=== PATIENT | female | born 1945 | race Caucasian/White ===

== ENCOUNTER 2020-05-02 16:39 | Inpatient (IN) | payer MEDICARE, OTHER ==
[~2020-05-02] VITALS: Ht 172.7 cm; Wt 68.0 kg
--- NOTE | 2020-05-02 17:00 | NUR ---
GPS/RN RECEIVED PT DIRECT ADMISSION FROM [facility] ON 5149 FOR DTS. ADMITTING ORDERS FROM DR LUA RECEIVED AND CARRIED OUT. BELONGINGS CHECKED FOR CONTRABAND. PT IS AMBULATORY CONTINENT NO ACUTE DISTRESS NOTED. NO SUICIDAL PLAN OR HI AT THE TIME OF ADMISSION. FAMILY (DAUGHTER [phone]) NOTIFIED OF ADMISSION. BS CHECK 187. PT NOT TAKING INSULIN AT HOME AND NOT COMPLIANT WITH MEDS AT HOME PER DAUGHTER.
[2020-05-02] MEDS ORDERED: LORA-258 PO (17:21)
[2020-05-02] MEDS ORDERED: RAMI10CA69 PO (17:21)
[2020-05-02] MEDS ORDERED: SITA1TAB6 PO (17:21)
[2020-05-02] MEDS ORDERED: DULO30CA52 PO (17:21)
[2020-05-02] MEDS ORDERED: EZET10TA32 PO (17:21)
[2020-05-02] MEDS ORDERED: ATEN25TA PO (17:21)
[2020-05-02] MEDS ORDERED: NITR0.4T48 SL (17:21)
[2020-05-02] MEDS ORDERED: SIMV-49 PO (17:21)
[2020-05-02] MEDS ORDERED: CLOP75TA15 PO (17:21)
[2020-05-02] MEDS ORDERED: ASPI-1169 PO (17:21)
[2020-05-02] MEDS ORDERED: ESOM40CA52 PO (17:21)
[2020-05-02] MEDS ORDERED: LORAZEPAM 0.5 MG TABLET PO PRN (17:30)
[2020-05-02] MEDS ORDERED: ACETAMINOPHEN 325 MG TABLET PO PRN (17:30)
[2020-05-02] MEDS ORDERED: MAGNESIUM HYDROXIDE 30 ML UDC PO PRN (17:30)
[2020-05-02] MEDS ORDERED: BLOOD SUGAR DIAGNOSTIC 1 EACH STRIP IN ONE (17:30)
[2020-05-02 17:47] VITALS: BP 123/68
--- NOTE | 2020-05-02 19:08 | NUR ---
GPS/RN ENDORSED TO WANT AD SUPERVISOR FAA RN TO CONTINUE WITH ADMISSION AND TO COLLECT MRSA
[2020-05-02] MEDS ORDERED: DEXTROSE 50%-WATER 50 ML DISP.SYRIN IV PRN (20:00)
[2020-05-02 20:47] VITALS: BP 120/60
[2020-05-02] MEDS: BLOOD SUGAR DIAGNOSTIC 1 EACH STRIP IN SCH (21:45)
[2020-05-02] MEDS: INSULIN REGULAR, HUMAN 100 UNIT/ML 3 ML VIAL SQ PRN (21:49)
--- NOTE | 2020-05-02 21:54 | NUR ---
GPS RN NOTE: RECEIVED PT IN BED RESTING, PT IS A/O X3, NO DISTRESS NOTED, VITAL SIGNS STABLE, PT WAS CALM, COOPERATIVE, FLAT AFFECT, DEPRESSED, ASKED THE PT HOW SHE FELT SHE STATED "IM OK, SAD, LITTLE DEPRESSED" PT DENIES SI/HI AT THIS TIME, DENIES AVH, PTS BLOOD SUGAR WAS 189 UNITS, ADMIN 3 UNITS OF INSULIN PER SLIDING SCALE, PT STATED SHE DOES NOT TAKE INSULIN SHE TAKES HER PILLS BUT WILL TAKE THE INSULIN NOW SHE WAITS FOR THE DR TO APPROVE HER MEDICATION IN THE MORNING. ALL NEEDS MET, ENVIORNMENTAL CHECK DONE, BED IN LOCKED AND LOWEST POSITION, BED ALARM ON, WILL CONTINUE TO MONITOR Q15MIN FOR SAFETY AND BEHAVIOR.
[2020-05-02] MEDS ORDERED: SIMVASTATIN 40 MG TABLET PO SCH (22:00)
[2020-05-02] MEDS ORDERED: NITROGLYCERIN 0.4 MG/TAB BOTTLE SL PRN (22:00)
[2020-05-03] MEDS: PANTOPRAZOLE 40 MG TABLET.DR PO SCH (07:30)
[2020-05-03] MEDS: BLOOD SUGAR DIAGNOSTIC 1 EACH STRIP IN SCH (07:30)
[2020-05-03 07:36] LABS: ALBUMIN 3.5 g/dL (3.4-5.0); BILIRUBIN,TOTAL 0.3 mg/dL (0.2-1.0); CALCIUM, SERUM 8.4 mg/dL (8.5-10.1); CREATININE 1.1 mg/dL (0.6-1.3); POTASSIUM 4.4 mmol/L (3.5-5.1); TOTAL PROTEIN, SERUM 7.7 g/dL (6.4-8.2)
[2020-05-03 07:46] LABS: THYROID STIMULATING HORMONE 1.439 uIU/mL (0.358-3.74)
[2020-05-03 07:58] LABS: ALBUMIN 3.5 g/dL (3.4-5.0); BILIRUBIN,DIRECT 0.1 mg/dL (0.0-0.2); BILIRUBIN,TOTAL 0.3 mg/dL (0.2-1.0); TOTAL PROTEIN, SERUM 7.7 g/dL (6.4-8.2)
[2020-05-03 08:00] VITALS: BP 144/74
[2020-05-03] MEDS ORDERED: Medication Not On Formulary EA (Sitagliptin Phos/Metformin Hcl (Janumet 50-1,000 Mg Tabl PO SCH (09:00)
[2020-05-03] MEDS: METFORMIN 500 MG TABLET PO SCH ×2 (09:54→17:08)
[2020-05-03] MEDS: LINAGLIPTIN 5 MG TABLET PO SCH (09:54)
[2020-05-03] MEDS: CLOPIDOGREL BISULFATE 75 MG TABLET PO SCH (09:54)
[2020-05-03] MEDS: EZETIMIBE 10 MG TABLET PO SCH (09:54)
[2020-05-03] MEDS: ASPIRIN 81 MG TAB.CHEW PO SCH (09:55)
[2020-05-03] MEDS: ATENOLOL 25 MG TABLET PO SCH (09:55)
[2020-05-03] MEDS: RAMIPRIL 5 MG CAPSULE PO SCH (09:58)
[2020-05-03] MEDS: INSULIN REGULAR, HUMAN 100 UNIT/ML 3 ML VIAL SQ PRN (10:04)
[2020-05-03] MEDS: VENLAFAXINE XR 75 MG CAP.SR.24H PO SCH (15:05)
[2020-05-03 16:00] VITALS: BP 109/57
[2020-05-03 20:53] VITALS: BP 110/50
[2020-05-03] MEDS: SIMVASTATIN 20 MG TABLET PO SCH (21:38)
[2020-05-03] MEDS: QUETIAPINE FUMARATE 25 MG TABLET PO SCH (21:38)
[2020-05-04 08:00] VITALS: BP 113/50
[2020-05-04] MEDS: PANTOPRAZOLE 40 MG TABLET.DR PO SCH (08:05)
[2020-05-04] MEDS: VENLAFAXINE XR 75 MG CAP.SR.24H PO SCH (08:07)
[2020-05-04] MEDS: CLOPIDOGREL BISULFATE 75 MG TABLET PO SCH (08:07)
[2020-05-04] MEDS: EZETIMIBE 10 MG TABLET PO SCH (08:07)
[2020-05-04] MEDS: ASPIRIN 81 MG TAB.CHEW PO SCH (08:07)
[2020-05-04] MEDS: ATENOLOL 25 MG TABLET PO SCH (08:07)
[2020-05-04] MEDS: METFORMIN 500 MG TABLET PO SCH ×2 (08:07→16:31)
[2020-05-04] MEDS: LINAGLIPTIN 5 MG TABLET PO SCH (08:07)
[2020-05-04] MEDS: RAMIPRIL 5 MG CAPSULE PO SCH (08:10)
[2020-05-04 16:00] VITALS: BP 104/51
[2020-05-04 20:26] VITALS: BP_SYST 117; BP_DIAS 52; BP_DIAS 68
[2020-05-04] MEDS: QUETIAPINE FUMARATE 25 MG TABLET PO SCH (21:08)
[2020-05-04] MEDS: SIMVASTATIN 20 MG TABLET PO SCH (21:08)
--- NOTE | 2020-05-04 22:45 | NUR ---
RN NOTES: PT. RESTING IN HER ROOM , NO BEHAVIOR PROBLEMS NOTED, MED COMPLIANT. NO ACUTE DISTRESS NOTED, NO CHANGES NOTED, ALL NEEDS ANTICIPATED, WILL CONTINUITY WITH CARE.
--- NOTE | 2020-05-05 06:23 | NUR ---
RN NOTES: PT. RESTING IN HER ROOM , NO ACUTE DISTRESS NOTED, NO CHANGES NOTED, ALL NEEDS ANTICIPATED, WILL CONTINUITY WITH CARE.
[2020-05-05 08:00] VITALS: BP 128/60
[2020-05-05] MEDS: PANTOPRAZOLE 40 MG TABLET.DR PO SCH (08:00)
[2020-05-05] MEDS: METFORMIN 500 MG TABLET PO SCH ×2 (08:30→16:11)
[2020-05-05] MEDS: ASPIRIN 81 MG TAB.CHEW PO SCH (08:30)
[2020-05-05] MEDS: VENLAFAXINE XR 75 MG CAP.SR.24H PO SCH (08:30)
[2020-05-05] MEDS: CLOPIDOGREL BISULFATE 75 MG TABLET PO SCH (08:30)
[2020-05-05] MEDS: LINAGLIPTIN 5 MG TABLET PO SCH (08:30)
[2020-05-05] MEDS: EZETIMIBE 10 MG TABLET PO SCH (08:31)
[2020-05-05] MEDS: RAMIPRIL 5 MG CAPSULE PO SCH (08:34)
[2020-05-05] MEDS: ATENOLOL 25 MG TABLET PO SCH (08:34)
--- NOTE | 2020-05-05 10:26 | NUR ---
WOUND CARE CONSULT: PT REFUSED SKIN ASSESSMENT AND DENIES ANY SKIN ISSUES. CURRENT JASON SCORE IS 22. WILL SEE PRN.
--- NOTE | 2020-05-05 10:42 | NUR ---
FAMILY CONTACT: SW contacted pts daughter Juanito ([phone]) to discuss collateral information, treatment, and discharge plan. SW informed daughter that pt wishes to be discharged to a friends house and daughter stated that pt is absolutely not able to be discharged to anywhere else but a half-way. Daughter states that pt is a danger to others and a danger to society and needs to be locked in a psych facility. Daughter states pt has a history of medication non-compliance and has a history of suicide attempts. Daughter states that pt is aggressive and cannot return to live with her. Daughter wishes to be involved with pts treatment and discharge planning.
--- NOTE | 2020-05-05 12:20 | NUR ---
INITIAL DISCHARGE PLAN: Per daughter Del ([phone]) she wishes for pt to be placed at a SNF. Per daughter she is unable to care for pt at home and unable to return to her home. SW will help form a safe and proper discharge in collaboration with .
[2020-05-05 16:00] VITALS: BP 108/54
[2020-05-05] MEDS: MAG HYDROX/AL HYDROX/SIMETH 30 ML UDC PO PRN (19:52)
--- NOTE | 2020-05-05 19:54 | NUR ---
GPS RN NOTE: INDIGESTION PT. C/O OF INDIGESTION. ADMINISTERED MAALOX 30 ML PRN ORDERED. WILL CONTINUE TO MONITOR FOR SAFETY AND BEHAVIOR.
[2020-05-05 20:32] VITALS: BP 117/78
[2020-05-05] MEDS: QUETIAPINE FUMARATE 25 MG TABLET PO SCH (21:37)
[2020-05-05] MEDS: SIMVASTATIN 20 MG TABLET PO SCH (21:37)
[2020-05-06 08:00] VITALS: BP 127/67
[2020-05-06] MEDS: ASPIRIN 81 MG TAB.CHEW PO SCH (08:30)
[2020-05-06] MEDS: EZETIMIBE 10 MG TABLET PO SCH (08:31)
[2020-05-06] MEDS: VENLAFAXINE XR 75 MG CAP.SR.24H PO SCH (08:31)
[2020-05-06] MEDS: METFORMIN 500 MG TABLET PO SCH ×2 (08:31→17:02)
[2020-05-06] MEDS: ATENOLOL 25 MG TABLET PO SCH (08:31)
[2020-05-06] MEDS: LINAGLIPTIN 5 MG TABLET PO SCH (08:31)
[2020-05-06] MEDS: PANTOPRAZOLE 40 MG TABLET.DR PO SCH (08:31)
[2020-05-06] MEDS: CLOPIDOGREL BISULFATE 75 MG TABLET PO SCH (08:32)
[2020-05-06] MEDS: RAMIPRIL 5 MG CAPSULE PO SCH (08:32)
--- NOTE | 2020-05-06 08:52 | NUR ---
SNF REFERRAL: THIERRY faxed SNF referral to [facility] Address: [address] [facility], [place] [address] for review.
--- NOTE | 2020-05-06 10:30 | NUR ---
INDIVIDUAL INTERVENTION: THIERRY and met with pt at bedside to discuss her discharge plan. Pt states she wishes to be discharged to an apartment her friend has found for her and states she needs her daughter to sign the lease and give the deposit. SW explained that her daughter will not approve of her lease and that her daughter wishes for her to be discharged to a SNF. Pt began crying and stating that she did not want to go to a SNF. informed pt that he will not discharge her to unsafe place and that he was strongly recommending SNF placement. Pt agreed to to go a local SNF.
--- NOTE | 2020-05-06 11:01 | NUR ---
SNF REFERRAL: THIERRY faxed SNF referral to [facility] ([facility]) [address] [facility] [address] for review.
--- NOTE | 2020-05-06 11:05 | NUR ---
FAMILY CONTACT: THIERRY contacted pts daughter Juan M ([phone]) to discuss pts discharge plan. SW informed daughter of meeting THIERRY and had with pt regarding her discharge plan. THIERRY explained to daughter that pt is able to make her decisions and that daughter could not force pt to stay at a SNF unless she had DPOA. Daughter stated that she will not sign the lease or provide money for a down payment for an apartment. Daughter states that she wishes for pt to be discharged to a SNF and states that if pt signs herself out of the SNF that she will call the police so that pt is hospitalized again.
--- NOTE | 2020-05-06 11:40 | NUR ---
SNF CONTACT: SW received a call from Cuca, log operations coordinator at [facility] ([facility]) [address] [facility] [address] stating pt has been accepted to the facility.
--- NOTE | 2020-05-06 14:02 | NUR ---
GPS/RN-NOTES NOTED PATIENT ANXIOUS PACING IN THE ROOM,REDIRECTED PATIENT TO ATTEND GROUP BUT REFUSED. OFFERED ATIVAN 1MG P.O PRN ORDER. WILL CONT. MONITORING FOR SAFETY AND BEHAVIOR.
--- NOTE | 2020-05-06 15:10 | NUR ---
GPS/RN-NOTES PATIENT IN THE ROOM LAYING IN BED,CALM NO ACUTE DISTRESS NOTED.
--- NOTE | 2020-05-06 15:46 | NUR ---
INDIVIDUAL INTERVENTION: THIERRY met with pt at bedside to discuss her discharge plan. Pt reported to SW that MD is discharging her tomorrow SW informed her that MD has not given discharge orders and pt insisted that he did and that her sister was coming to pick her up tomorrow. SW provided reality orientation and informed her that she does not have a sister that lives in [place] and that her sister lives in [facility]. SW also informed her that MD did not give discharge orders and also informed her of the conversation SW and MD had with pt earlier this day regarding her discharge plan. Pt later stated that her sister was her friend and stated that she would take her in to live with her. SW contacted pts friend Milli and she was unable to provide confirmation for housing arrangements.
[2020-05-06 16:00] VITALS: BP 124/76
[2020-05-06 20:11] VITALS: BP 120/76
[2020-05-06] MEDS: QUETIAPINE FUMARATE 25 MG TABLET PO SCH (21:18)
[2020-05-06] MEDS: SIMVASTATIN 20 MG TABLET PO SCH (21:19)
[2020-05-07 08:00] VITALS: BP 127/75
[2020-05-07] MEDS: LINAGLIPTIN 5 MG TABLET PO SCH (08:30)
[2020-05-07] MEDS: VENLAFAXINE XR 75 MG CAP.SR.24H PO SCH (08:31)
[2020-05-07] MEDS: CLOPIDOGREL BISULFATE 75 MG TABLET PO SCH (08:31)
[2020-05-07] MEDS: EZETIMIBE 10 MG TABLET PO SCH (08:31)
[2020-05-07] MEDS: METFORMIN 500 MG TABLET PO SCH ×2 (08:31→17:06)
[2020-05-07] MEDS: PANTOPRAZOLE 40 MG TABLET.DR PO SCH (08:32)
[2020-05-07] MEDS: ASPIRIN 81 MG TAB.CHEW PO SCH (08:32)
[2020-05-07] MEDS: ATENOLOL 25 MG TABLET PO SCH (08:32)
[2020-05-07] MEDS: RAMIPRIL 5 MG CAPSULE PO SCH (08:35)
[2020-05-07 16:00] VITALS: BP 134/54
[2020-05-07] MEDS: MAG HYDROX/AL HYDROX/SIMETH 30 ML UDC PO PRN (19:35)
[2020-05-07 20:02] VITALS: BP_SYST 117; BP_SYST 136; BP_DIAS 67; BP_DIAS 80
[2020-05-07] MEDS: SIMVASTATIN 20 MG TABLET PO SCH (21:22)
[2020-05-07] MEDS: QUETIAPINE FUMARATE 25 MG TABLET PO SCH (21:22)
[2020-05-07] MEDS: ZOLPIDEM TARTRATE 5 MG TABLET PO PRN (22:27)
[2020-05-08 08:00] VITALS: BP 100/54
[2020-05-08] MEDS: METFORMIN 500 MG TABLET PO SCH ×2 (08:14→16:37)
[2020-05-08] MEDS: CLOPIDOGREL BISULFATE 75 MG TABLET PO SCH (08:14)
[2020-05-08] MEDS: EZETIMIBE 10 MG TABLET PO SCH (08:14)
[2020-05-08] MEDS: LINAGLIPTIN 5 MG TABLET PO SCH (08:14)
[2020-05-08] MEDS: PANTOPRAZOLE 40 MG TABLET.DR PO SCH (08:14)
[2020-05-08] MEDS: ASPIRIN 81 MG TAB.CHEW PO SCH (08:14)
[2020-05-08] MEDS: ATENOLOL 25 MG TABLET PO SCH (08:28)
[2020-05-08] MEDS: RAMIPRIL 5 MG CAPSULE PO SCH (08:28)
[2020-05-08] MEDS: VENLAFAXINE XR 37.5 MG CAP.SR.24H PO SCH (08:30)
--- NOTE | 2020-05-08 08:36 | NUR ---
Family Contact: Pts daughter, Juan M ([phone]), called the SW and stated that she wanted an update regarding the pts status. SW stated that the pt is not on the list to be discharged today and that the MD will come in soon and the SW will ask about the discharge so she can inform the pts daughter ahead of time.
[2020-05-08] MEDS ORDERED: VENLAFAXINE XR 75 MG CAP.SR.24H PO SCH (09:00)
--- NOTE | 2020-05-08 10:13 | NUR ---
Family Contact: SW called the pts daughter, Juan M ([phone]), and informed her that the MD evaluated the pt and stated that the pt will not be discharged over the weekend. THIERRY stated that she will be informed of the discharge before it happens.
[2020-05-08 16:00] VITALS: BP 123/59
[2020-05-08 20:00] VITALS: BP 140/80
[2020-05-08 20:11] VITALS: BP 140/80
[2020-05-08] MEDS: QUETIAPINE FUMARATE 25 MG TABLET PO SCH (21:26)
[2020-05-08] MEDS: SIMVASTATIN 20 MG TABLET PO SCH (21:27)
[2020-05-08] MEDS: ZOLPIDEM TARTRATE 5 MG TABLET PO PRN (22:36)
--- NOTE | 2020-05-08 22:36 | NUR ---
GPS RN NOTE: INSOMNIA PATIENT STATED SHE IS UNABLE TO SLEEP & WANTED TO TAKE SLEEPING MEDICINE, PRN AMBIEN 5 MG 1 TAB PO GIVEN. WILL CONTINUE TO MONITOR FOR EFFECTIVENESS.
[2020-05-09] MEDS: PANTOPRAZOLE 40 MG TABLET.DR PO SCH (07:46)
[2020-05-09 08:00] VITALS: BP 124/66
[2020-05-09] MEDS: LINAGLIPTIN 5 MG TABLET PO SCH (08:00)
[2020-05-09] MEDS: EZETIMIBE 10 MG TABLET PO SCH (08:00)
[2020-05-09] MEDS: ASPIRIN 81 MG TAB.CHEW PO SCH (08:00)
[2020-05-09] MEDS: CLOPIDOGREL BISULFATE 75 MG TABLET PO SCH (08:00)
[2020-05-09] MEDS: VENLAFAXINE XR 37.5 MG CAP.SR.24H PO SCH (08:00)
[2020-05-09] MEDS: METFORMIN 500 MG TABLET PO SCH ×2 (08:01→16:58)
[2020-05-09] MEDS: RAMIPRIL 5 MG CAPSULE PO SCH (09:00)
[2020-05-09] MEDS: ATENOLOL 25 MG TABLET PO SCH (09:10)
[2020-05-09] MEDS: LOPERAMIDE HCL (2 MG CAP) 2 MG CAPSULE PO PRN (13:35)
--- NOTE | 2020-05-09 13:35 | NUR ---
RN NOTE: PT REPORTS ONE LOOSE STOOL. MEDICATED WITH IMMODIUM PO PRN
[2020-05-09 16:00] VITALS: BP 136/96
[2020-05-09 18:02] VITALS: BP 152/79
[2020-05-09 20:01] VITALS: BP 124/60
[2020-05-09] MEDS: SIMVASTATIN 20 MG TABLET PO SCH (21:18)
[2020-05-09] MEDS: QUETIAPINE FUMARATE 25 MG TABLET PO SCH (21:18)
[2020-05-09] MEDS: ZOLPIDEM TARTRATE 5 MG TABLET PO PRN (22:02)
--- NOTE | 2020-05-09 22:02 | NUR ---
GPS RN NOTE: INSOMNIA PT. UNABLE TO SLEEP. ADMINISTERED AMBIEN 5 MG PO PRN ORDERED. WILL CONTINUE TO MONITOR FOR SAFETY AND BEHAVIOR
[2020-05-10 08:00] VITALS: BP 126/64
[2020-05-10] MEDS: PANTOPRAZOLE 40 MG TABLET.DR PO SCH (08:20)
[2020-05-10] MEDS: RAMIPRIL 5 MG CAPSULE PO SCH (08:36)
[2020-05-10] MEDS: ATENOLOL 25 MG TABLET PO SCH (08:37)
[2020-05-10] MEDS: METFORMIN 500 MG TABLET PO SCH ×2 (08:38→16:35)
[2020-05-10] MEDS: VENLAFAXINE XR 37.5 MG CAP.SR.24H PO SCH (08:38)
[2020-05-10] MEDS: CLOPIDOGREL BISULFATE 75 MG TABLET PO SCH (08:38)
[2020-05-10] MEDS: ASPIRIN 81 MG TAB.CHEW PO SCH (08:38)
[2020-05-10] MEDS: EZETIMIBE 10 MG TABLET PO SCH (08:38)
[2020-05-10] MEDS: LINAGLIPTIN 5 MG TABLET PO SCH (08:38)
[2020-05-10 16:00] VITALS: BP 137/63
[2020-05-10 20:00] VITALS: BP 141/78
[2020-05-10] MEDS: SIMVASTATIN 20 MG TABLET PO SCH (21:17)
[2020-05-10] MEDS: QUETIAPINE FUMARATE 25 MG TABLET PO SCH (21:17)
[2020-05-10] MEDS: ZOLPIDEM TARTRATE 5 MG TABLET PO PRN (21:43)
--- NOTE | 2020-05-10 21:43 | NUR ---
GPS RN NOTE: INSOMNIA PT. UNABLE TO SLEEP. ADMINISTERED AMBIEN 5 MG PO PRN ORDERED. WILL CONTINUE TO MONITOR FOR SAFETY AND BEHAVIOR
[2020-05-11] MEDS: PANTOPRAZOLE 40 MG TABLET.DR PO SCH (07:57)
[2020-05-11 08:00] VITALS: BP 136/86
[2020-05-11] MEDS: VENLAFAXINE XR 37.5 MG CAP.SR.24H PO SCH (08:28)
[2020-05-11] MEDS: EZETIMIBE 10 MG TABLET PO SCH (08:28)
[2020-05-11] MEDS: LINAGLIPTIN 5 MG TABLET PO SCH (08:29)
[2020-05-11] MEDS: CLOPIDOGREL BISULFATE 75 MG TABLET PO SCH (08:29)
[2020-05-11] MEDS: ASPIRIN 81 MG TAB.CHEW PO SCH (08:29)
[2020-05-11] MEDS: ATENOLOL 25 MG TABLET PO SCH (08:29)
[2020-05-11] MEDS: METFORMIN 500 MG TABLET PO SCH ×2 (08:29→17:15)
[2020-05-11] MEDS: RAMIPRIL 5 MG CAPSULE PO SCH (08:31)
[2020-05-11 16:00] VITALS: BP 104/59
[2020-05-11] MEDS: MAG HYDROX/AL HYDROX/SIMETH 30 ML UDC PO PRN (20:07)
[2020-05-11 20:51] VITALS: BP 115/63
[2020-05-11] MEDS: SIMVASTATIN 20 MG TABLET PO SCH (21:03)
[2020-05-11] MEDS: QUETIAPINE FUMARATE 25 MG TABLET PO SCH (21:03)
[2020-05-11] MEDS: ZOLPIDEM TARTRATE 5 MG TABLET PO PRN (21:59)
[2020-05-12 08:00] VITALS: BP 115/59
[2020-05-12] MEDS: METFORMIN 500 MG TABLET PO SCH ×2 (08:14→17:17)
[2020-05-12] MEDS: ASPIRIN 81 MG TAB.CHEW PO SCH (08:14)
[2020-05-12] MEDS: EZETIMIBE 10 MG TABLET PO SCH (08:15)
[2020-05-12] MEDS: PANTOPRAZOLE 40 MG TABLET.DR PO SCH (08:15)
[2020-05-12] MEDS: LINAGLIPTIN 5 MG TABLET PO SCH (08:15)
[2020-05-12] MEDS: CLOPIDOGREL BISULFATE 75 MG TABLET PO SCH (08:15)
[2020-05-12] MEDS: RAMIPRIL 5 MG CAPSULE PO SCH (08:16)
[2020-05-12] MEDS: ATENOLOL 25 MG TABLET PO SCH (08:17)
[2020-05-12] MEDS: VENLAFAXINE XR 37.5 MG CAP.SR.24H PO SCH (08:31)
--- NOTE | 2020-05-12 08:59 | NUR ---
INDIVIDUAL INTERVENTION: THIERRY assessed for suicidality and pt stated that today he is no longer having thoughts of suicide. Addendum: 05/12/20 at 1059 by ERIK GUADARRAMA THIERRY met with pt and informed her of her discharge for tomorrow Monday05/13/20 to [facility]. Pt agreed with her discharge plan.
--- NOTE | 2020-05-12 10:40 | NUR ---
FAMILY CONTACT: THIERRY called the pts daughter, Juan M ([phone]) and informed her that pt will be discharging tomorrow Monday05/13/20 to [facility] ([facility]) [address] [place] [phone] . Daughter agreed to discharge plan. SW also informed her that pt is requesting extra clothes and daughter stated she dropped off clothes for pt in the lobby yesterday 05/11/20.
[2020-05-12 16:00] VITALS: BP 110/69
[2020-05-12 19:57] VITALS: BP 124/63
[2020-05-12] MEDS: SIMVASTATIN 20 MG TABLET PO SCH (21:22)
[2020-05-12] MEDS: QUETIAPINE FUMARATE 25 MG TABLET PO SCH (21:22)
[2020-05-12] MEDS: ZOLPIDEM TARTRATE 5 MG TABLET PO PRN (21:58)
--- NOTE | 2020-05-13 06:45 | NUR ---
GPS RN CLOSING NOTES: PT IS LAYING ON BED SLEEPING. NO BEHAVIORAL ISSUES THIS SHIFT. SLEPT FOR 8 HR. NO S/S OF DISTRESS, RESPIRATION EVEN AND UNLABORED WITH EQUAL RISE AND FALL OF THE CHEST ON ROOM AIR. ALL PT CARE NEEDS MET ANTICIPATED. PT IS SCHEDULED FOR DISCHARGE TODAY AT NOON. WILL CONTINUE TO MONITOR AND ENDORSE TO AM SHIFT
[2020-05-13 08:00] VITALS: BP 148/71
[2020-05-13] MEDS: CLOPIDOGREL BISULFATE 75 MG TABLET PO SCH (08:16)
[2020-05-13] MEDS: ASPIRIN 81 MG TAB.CHEW PO SCH (08:16)
[2020-05-13] MEDS: VENLAFAXINE XR 37.5 MG CAP.SR.24H PO SCH (08:16)
[2020-05-13] MEDS: METFORMIN 500 MG TABLET PO SCH (08:16)
[2020-05-13] MEDS: LINAGLIPTIN 5 MG TABLET PO SCH (08:16)
[2020-05-13] MEDS: EZETIMIBE 10 MG TABLET PO SCH (08:16)
[2020-05-13] MEDS: PANTOPRAZOLE 40 MG TABLET.DR PO SCH (08:16)
[2020-05-13] MEDS: ATENOLOL 25 MG TABLET PO SCH (08:16)
[2020-05-13 08:17] VITALS: BP 148/71
[2020-05-13] MEDS: RAMIPRIL 5 MG CAPSULE PO SCH (08:17)
--- NOTE | 2020-05-13 08:49 | NUR ---
DISCHARGE NOTE: Pt will be discharged at 12:00pm via [facility] to [facility] ([facility]) [address] [facility] [address] P: [phone]. Pts daughterJuan M ([phone]) has been notified and agrees with discharge plan. Pt is stating she does not want to be discharged to a SNF and states she wants to be discharged to an apartment her friend has found for her. Due to SW not being able to confirm this information and it not being a safe discharge. Daughter also refused for pt to be discharged elsewhere other than a SNF. Pts mood is labile with congruent affect and is alert and oriented x4. Pt denies visual/auditory hallucinations and denied suicidal/homicidal ideation. Pt is ambulatory and appears well groomed and dressed. Pt will be under the care of Psychiatrist: Dr. Cheung [address] [address] [phone] and Supervisor [place]: Dr. Timmy Matt Address: [address] [place] [address] Phone: . The multidisciplinary exit care form was done, printed, signed, and given to the patient Addendum: 05/13/20 at 0917 by ERIK GUADARRAMA DISCHARGE NOTE: Pt will be discharged at 12:00pm via [facility]ULN[facility] to [facility] ([facility]) [address] [facility] [address] P: [phone]. Pts daughter, Juan M ([phone]) has been notified and agrees with discharge plan. Pt is stating she does not want to be discharged to a SNF and states she wants to be discharged to an apartment her friend has found for her. Due to SW not being able to confirm this information and it not being a safe discharge and pts daughter also refusing for pt to be discharged elsewhere other than a SNF pt will be discharged to a SNF. Pts mood is labile with congruent affect and is alert and oriented x4. Pt denies visual/auditory hallucinations and denied suicidal/homicidal ideation. Pt is ambulatory and appears well groomed and dressed. Pt will be under the care of Psychiatrist: Dr. Cheung [address] [address] [phone] and Supervisor [place]: Dr. Timmy Matt Address: [address] [place] [phone] Phone: . The multidisciplinary exit care form was done, printed, signed, and given to the patient
[2020-05-13] MEDS: LOPERAMIDE HCL (2 MG CAP) 2 MG CAPSULE PO PRN (12:56)
--- NOTE | 2020-05-13 14:46 | NUR ---
GPS EXERCISE INSTRUCTOR NOTE: PATIENT DISCHARGED TODAY TO [facility] [address] [facility] [address] PT DAUGHTER , MARKOS NOTIFIED BY SS .PATIENT LEFT THE UNIT VIA AMBULANCE PATIENT IS IN STABLE CONDITION. VSS. NO ACUTE DISTRESS NOTED. NO COMPLAINTS. COMPLIANT WITH MEDICATION MANAGEMENT. COOPERATIVE WITH PLAN OF CARE. PSYCHIATRIC TREATMENT PLANS MET. MEDICAL TREATMENT PLANS DEFERRED FOR CONTINUAL MONITORING. DENIES SI/HI/VAH AT THE TIME OF DISCHARGE. SKIN CHECK DONE HOWEVER PATIENT REFUSED PICTURES TO BE TAKEN. EDUCATED PATIENT ABOUT AFTERCARE WITH COPY PROVIDED. RETURNED PERSONAL BELONGINGS TO PATIENT. MEDICATIONS RECONCILED WITH ALONG WITH PSYCHIATRIC DISCHARGE ORDERS. DISCHARGE PAPERWORK SIGNED. REPORT GIVEN TO RN IN THE FACILITY
[2020-05-13] MEDS ORDERED: ACET-868 PO (19:04)
[2020-05-13] MEDS ORDERED: VENL37.55 PO (19:04)
[2020-05-13] MEDS ORDERED: LOPE2CAP PO (19:04)
[2020-05-13] MEDS ORDERED: INSU100V3 SQ (19:04)
[2020-05-13] MEDS ORDERED: MAGN400O6 PO (19:04)
[2020-05-13] MEDS ORDERED: PANT40TA2 PO (19:04)
[2020-05-13] MEDS ORDERED: MAG30ORA PO (19:04)
[2020-05-13] MEDS ORDERED: QUET25TA PO (19:04)
[2020-05-13] MEDS ORDERED: ZOLP5TAB8 PO (19:04)
[2020-05-13] MEDS ORDERED: DEXT50DI8 IV (19:04)
[2020-05-13] MEDS ORDERED: METF-440 PO (19:04)
[2020-05-13] MEDS ORDERED: LINA5TAB PO (19:04)
== END 2020-05-13 14:20 | DRG 885 ==
LOC: GPS 16:39
PROVIDERS: ADMIT Psychiatry & Neurology Psychiatry; ATTEND Student in an Organized Health Care Education/Training Program
DX: F33.3 Major depressive disorder, recurrent, severe with psychotic symptoms (principal); N17.0 Acute kidney failure with tubular necrosis; N18.9 Chronic kidney disease, unspecified; R45.851 Suicidal ideations; E87.1 Hypo-osmolality and hyponatremia; I25.10 Atherosclerotic heart disease of native coronary artery without angina pectoris; E11.22 Type 2 diabetes mellitus with diabetic chronic kidney disease; I12.9 Hypertensive chronic kidney disease with stage 1 through stage 4 chronic kidney disease, or unspecified chronic kidney disease; E78.5 Hyperlipidemia, unspecified; F41.9 Anxiety disorder, unspecified; R74.0 Nonspecific elevation of levels of transaminase and lactic acid dehydrogenase [LDH]; J45.909 Unspecified asthma, uncomplicated; Z79.899 Other long term (current) drug therapy; Z81.8 Family history of other mental and behavioral disorders
CPT/HCPCS: 36415; 80053-TC; 80061-TC; 80076-TC; 82962-TC; 84443-TC; 87081-TC; J1815

== ENCOUNTER 2020-05-13 18:32 | Inpatient (IN) | payer MEDICARE, OTHER ==
[~2020-05-13] VITALS: Ht 160 cm; Wt 69.4 kg
[~2020-05-13 18:32] MED LIST: ASPI-1169 PO; ATEN25TA PO; CLOP75TA15 PO; DULO30CA52 PO; ESOM40CA52 PO; EZET10TA32 PO; LORA-258 PO; NITR0.4T48 SL; RAMI10CA69 PO; SIMV-49 PO; SITA1TAB6 PO
--- NOTE | 2020-05-13 18:43 | NUR ---
NIMO FARRAR FOR MEDICAL CLEARANCE AND VOLUNTARY ADMISSION TO [facility] PER DR LUA'S ORDER. PATIENT IS STABLE. RR IS EVEN AND UNLABORED. DR CASTANON AT BEDSIDE FOR EVAL.
--- NOTE | 2020-05-13 18:48 | NUR ---
CALLED GREGORY [phone]
[2020-05-13] MEDS ORDERED: VENL37.55 PO (19:04)
[2020-05-13] MEDS ORDERED: PANT40TA2 PO (19:04)
[2020-05-13] MEDS ORDERED: METF-440 PO (19:04)
[2020-05-13] MEDS ORDERED: DEXT50DI8 IV (19:04)
[2020-05-13] MEDS ORDERED: MAG30ORA PO (19:04)
[2020-05-13] MEDS ORDERED: QUET25TA PO (19:04)
[2020-05-13] MEDS ORDERED: LINA5TAB PO (19:04)
[2020-05-13] MEDS ORDERED: ZOLP5TAB8 PO (19:04)
[2020-05-13] MEDS ORDERED: INSU100V3 SQ (19:04)
[2020-05-13] MEDS ORDERED: MAGN400O6 PO (19:04)
[2020-05-13] MEDS ORDERED: LOPE2CAP PO (19:04)
[2020-05-13] MEDS ORDERED: ACET-868 PO (19:04)
--- NOTE | 2020-05-13 19:37 | NUR ---
RELAY SHOP TESTER, NIKI, AT BEDSIDE
--- NOTE | 2020-05-13 19:46 | NUR ---
PT SIGNED VOLUNTARY PSYCHIATRIC ADMISSION FORM FROM [facility].
--- NOTE | 2020-05-13 20:31 | NUR ---
PT TRANSPORTED TO [facility]
[2020-05-13 20:45] VITALS: BP 138/69
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
[2020-05-13] MEDS ORDERED: LORAZEPAM 0.5 MG TABLET PO PRN (21:30)
[2020-05-13] MEDS ORDERED: MAGNESIUM HYDROXIDE 30 ML UDC PO PRN (21:30)
[2020-05-13] MEDS ORDERED: BLOOD SUGAR DIAGNOSTIC 1 EACH STRIP IN ONE (21:30)
[2020-05-13] MEDS ORDERED: MAG HYDROX/AL HYDROX/SIMETH 30 ML UDC PO PRN (21:30)
[2020-05-13] MEDS ORDERED: ZOLPIDEM TARTRATE 5 MG TABLET PO PRN (21:30)
[2020-05-13] MEDS ORDERED: ACETAMINOPHEN 325 MG TABLET PO PRN (21:30)
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
--- NOTE | 2020-05-13 22:30 | NUR ---
GPS RN NOTE PATIENT'S DAUGHTER CALLED & SPOKE TO CHARGE NURSE. CN INFORMED PT'S DAUGHTER THAT HER MOTHER WAS ADMITTED AT [facility] AGAIN VOLUNTARY ADMISSION SINCE SHE WANTED TO BE ADMITTED AT [facility] & REFUSED TO BE AT SNF WHERE SHE WAS DISCHARGED TO ON 05/13/2020.
--- NOTE | 2020-05-13 22:30 | NUR ---
GPS RN NOTE: SEEN BY PATIENT SEEN BY DR. SHEA & REQUESTED MD FOR MED RECON. MD REVIEWED HOME MEDICATION LIST.
--- NOTE | 2020-05-13 22:47 | NUR ---
GPS RN NOTE: INSOMNIA PATIENT VERBALIZED THAT SHE IS UNABLE TO SLEEP & REQUESTED TO TAKE SLEEPING MEDICINE. PRN AMBIEN 5 MG 1 TAB PO GIVEN. WILL CONTINUE TO MONITOR.
--- NOTE | 2020-05-14 01:56 | NUR ---
GPS RN NOTE: ANXIETY PATIENT CAME OUT OF HER ROOM, STATED," I AM FEELING RESTLESS, ANXIOUS & KEEP THINKING, I NEED TO RELAX & NEED MEDICINE." PRN ATIVAN 1 MG PO GIVEN. WILL CONTINUE TO MONITOR.
[2020-05-14 07:06] LABS: ALANINE AMINOTRANSFERASE 54 U/L (12-78); ALBUMIN 3.6 g/dL (3.4-5.0); ALKALINE PHOSPHATASE 65 U/L (46-116); ASPARTATE AMINOTRANSFERASE 30 U/L (15-37); BILIRUBIN,TOTAL 0.2 mg/dL (0.2-1.0); CALCIUM, SERUM 8.6 mg/dL (8.5-10.1); CARBON DIOXIDE 26 mmol/L (21-32); CHLORIDE 104 mmol/L (98-107); CREATININE 1.6 mg/dL (0.6-1.3); GLUCOSE 122 mg/dL (74-106); POTASSIUM 4.7 mmol/L (3.5-5.1); SODIUM SERUM 141 mmol/L (136-145); TOTAL PROTEIN, SERUM 7.3 g/dL (6.4-8.2); UREA NITROGEN, BLOOD 29 mg/dL (7-18)
[2020-05-14 07:22] LABS: CHOLESTEROL 164 mg/dL (<200); HDL CHOLESTEROL 46 mg/dL (40-60); LDL 95 mg/dL (0-99); TRIGLYCERIDES 149 mg/dL (30-150)
[2020-05-14 08:00] VITALS: BP 139/71
--- NOTE | 2020-05-14 08:35 | NUR ---
PSYCHOSOCIAL NOTE: I, STEPHON Mohamud, attest to the patients previous psychosocial information dated 05/05/20 Update On Events leading to Admission and Discharge Plan: Pt has returned to the hospital within less than 24 hours of her previous discharge date of 05/13/20. Pt has been admitted voluntarily and states she wants to leave. Pt was previously discharged to [facility] and discharged AMA. MD and THIERRY met with pt at bedside and pt is refusing to stay and refusing treatment. Pt is accusing MD of lying to her and stated that the facility was filled with Magaly people and Setswana's. The current plan is to increase the patient on her medications and safely discharge her to a SNF. Per pt, she would like to return home and she stated that she does not want to be here again and does not want to go to a SNF. Pt states she has found a place she can live but is unable to provide the name and location. Pt is currently homeless and has no place to go as her daughter Del ([phone]) will not take her back in. The pt appears to be in a dysphoric mood with an irritable affect. Pt appeared to be ambulatory, well-groomed and appropriately dressed. Pt is alert and oriented x4, to self, place, time, and situation. Pt is currently denying any suicidal or homicidal ideation and denying visual or auditory hallucinations. Pt wishes to leave AMA on this present day.
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
--- NOTE | 2020-05-14 11:02 | NUR ---
AMA DISCHARGE: Pt was discharged Against Medical Advice as a homeless discharge. Pt refused to state where she was going and refused all resources/services offered to her at this time. Pts daughter Juan M ([phone]) has been notified. Pt is alert and oriented x4, to self, place, time, and situation and appears appropriately dressed and groomed. Pts mood is labile with congruent affect. Pt denies suicidal/homicidal ideation and denies visual/auditory hallucinations.
--- NOTE | 2020-05-14 11:08 | NUR ---
GPS VOCATIONAL TEACHER NOTE: PATIENT 61 Y/O F ON VOLUNTARY STATUS LIVING AMA TODAY. PATIENT A/O X3 , AMBULATORY, STEADY GAIT, DENIES BEING DEPRESSED DENIES SI/HI AVH, PT SELF CARE. PATIENT VSS STABLE NO S/S DISTRESS NOTED NO C/O PAIN OR ANY DISCOMFORT. PT REFUSED TREATMENT AND CARE. PER MD PT NOTE MEET CRITERIA FOR 5150 MD SOLO ORDER DISCHARGE PATIENT AMA .PER PT SHE MAKE PHONE CALL TO HER FRIEND TO PICK HER UP FROM THE HOSPITAL PLAN TO STAY AT THE FRIENDS HOUSE .ALL BELONGINGS AND VALUABLES WITH DISCHARGE INSTRUCTION, EXIT CARE GIVEN AND EXPLAIN TO PT.
== END 2020-05-14 11:00 | disposition left against medical advice (07) | DRG 885 ==
LOC: ER 18:59 → GPS 20:35
PROVIDERS: ADMIT Psychiatry & Neurology Psychiatry; ATTEND Internal Medicine
DX: F33.3 Major depressive disorder, recurrent, severe with psychotic symptoms (principal); F60.3 Borderline personality disorder; F41.9 Anxiety disorder, unspecified; F29 Unspecified psychosis not due to a substance or known physiological condition; E11.9 Type 2 diabetes mellitus without complications; E78.5 Hyperlipidemia, unspecified; I10 Essential (primary) hypertension; I25.10 Atherosclerotic heart disease of native coronary artery without angina pectoris; Z79.84 Long term (current) use of oral hypoglycemic drugs; Z79.899 Other long term (current) drug therapy; Z79.4 Long term (current) use of insulin; Z79.82 Long term (current) use of aspirin; Z79.02 Long term (current) use of antithrombotics/antiplatelets; Z73.6 Limitation of activities due to disability; J45.909 Unspecified asthma, uncomplicated; F03.90 Unspecified dementia, unspecified severity, without behavioral disturbance, psychotic disturbance, mood disturbance, and anxiety; R53.1 Weakness; R27.8 Other lack of coordination; Z91.81 History of falling
CPT/HCPCS: 36415; 80053-TC; 80061-TC; 82962-TC; 87081-TC